=== PATIENT | female | born 1985 | race Caucasian/White ===

== ENCOUNTER 2021-02-13 20:53 | Observation (INO) ==
[2021-02-14] MEDS ORDERED: Melatonin 3 MG TABLET PO PRN (01:36)
[2021-02-14] MEDS ORDERED: Ondansetron 4 MG/2 ML VIAL IVP PRN (01:36)
[2021-02-14] MEDS ORDERED: Naloxone 0.4 MG/ML INJ IVP PRN (01:36)
[2021-02-14] MEDS ORDERED: Ketorolac 15 MG/ML VIAL IVP ONE (02:06)
[2021-02-14] MEDS ORDERED: 0.9 % Sodium Chloride 1,000 ML IVC ONE (02:10)
[2021-02-14 06:54] LABS: Hematocrit 38.5 % (35.3-44.9); Hemoglobin 12.4 g/dL (11.5-15.4); Mean Corpuscular HGB Conc 32.2 g/dL (31.6-35.5); Mean Corpuscular Hemoglobin 26.6 pg (28.0-33.3); Mean Corpuscular Volume 82.6 fL (83.0-100.0); Mean Platelet Volume 9.3 fL (9.4-12.4); Platelet Count 187 K/mcL (140-400); Red Blood Count 4.66 M/mcL (3.82-4.97); Red Cell Distribution Width 13.7 % (11.5-14.5); White Blood Count 28.7 K/mcL (4.3-11.1)
[2021-02-14 07:01] LABS: Estimated Average Glucose 126 mg/dl
[2021-02-14 07:13] LABS: Alanine Aminotransferase 459 Units/L (7-52); Albumin 3.6 g/dL (3.5-5.7); Albumin/Globulin Ratio 1.2 (1.1-2.2); Alkaline Phosphatase 350 Units/L (34-104); Aspartate Amino Transferase 351 Units/L (13-39); BUN/Creatinine Ratio 18 (6-26); Bilirubin,Total 3.6 mg/dL (0.3-1.0); Blood Urea Nitrogen 14 mg/dL (6-20); Calcium 8.8 mg/dL (8.6-10.3); Carbon Dioxide 23 mEq/L (23-29); Chloride 106 mEq/L (98-107); Glucose 82 mg/dL (70-105); Magnesium 2.1 mg/dL (1.6-2.6); Osmolality,Calculated 288 (280-300); Phosphorous 3.6 mg/dL (2.7-4.5); Sodium 139 mEq/L (136-145); Total Protein 6.6 g/dL (6.4-8.9); eGFR For African Americans > 60 (> 60); eGFR For Non-African Americans > 60 (> 60)
[2021-02-14 07:46] LABS: Lymphocytes # 24.1 K/mcL (0.6-4.6); Neutrophils # 4.6 K/mcL (1.6-8.9); Reactive Lymphocytes Present (Not Present); Smudge Cells Present (Not Present)
[2021-02-14 07:47] LABS: Platelet Estimate Normal (Normal)
[2021-02-14 08:12] LABS: Hepatitis B Surface Antigen Nonreactive (Nonreactive)
[2021-02-14 08:41] LABS: Hepatitis C Virus Antibody Nonreactive (Nonreactive)
[2021-02-14 08:42] LABS: Hepatitis B Core IgM Nonreactive (Nonreactive)
[2021-02-14 08:43] LABS: Hepatitis A Antibody IgM Nonreactive (Nonreactive)
[2021-02-14] MEDS: levoFLOXacin 750 MG/150 ML 750 MG/150 ML BAG IVPB SCH (09:18)
[2021-02-14 10:12] LABS: Amylase 30 Units/L (29-103); Lipase 23 Units/L (11-82)
[2021-02-14] MEDS: MetroNIDAZOLE 500 MG/100 ML 500 MG/100 ML BAG IVPB SCH ×2 (15:03→23:43)
[2021-02-14] MEDS: *HR* Heparin 5,000 UNIT/ML VIAL SQ SCH (16:32)
[2021-02-15 02:01] LABS: Basophils # 0.1 K/mcL (0.0-0.2); Basophils % 0.3 %; Hematocrit 38.3 % (35.3-44.9); Hemoglobin 12.4 g/dL (11.5-15.4); Immature Granulocytes % 1.3 % (0-4); Lymphocytes % 75.3 %; Mean Corpuscular HGB Conc 32.4 g/dL (31.6-35.5); Mean Corpuscular Hemoglobin 26.4 pg (28.0-33.3); Mean Corpuscular Volume 81.7 fL (83.0-100.0); Mean Platelet Volume 9.2 fL (9.4-12.4); Monocytes # 2.2 K/mcL (0.0-1.3); Monocytes % 8.8 %; Neutrophils # 3.5 K/mcL (1.6-8.9); Platelet Count 198 K/mcL (140-400); Red Blood Count 4.69 M/mcL (3.82-4.97); Red Cell Distribution Width 13.7 % (11.5-14.5); Segmented Neutrophils % 14.3 %; White Blood Count 24.5 K/mcL (4.3-11.1)
[2021-02-15 02:08] LABS: Lymphocytes # 18.5 K/mcL (0.6-4.6)
[2021-02-15 02:21] LABS: Alanine Aminotransferase 483 Units/L (7-52); Albumin 3.4 g/dL (3.5-5.7); Albumin/Globulin Ratio 1.2 (1.1-2.2); Alkaline Phosphatase 324 Units/L (34-104); Aspartate Amino Transferase 340 Units/L (13-39); BUN/Creatinine Ratio 18 (6-26); Bilirubin,Total 3.6 mg/dL (0.3-1.0); Blood Urea Nitrogen 12 mg/dL (6-20); Calcium 8.2 mg/dL (8.6-10.3); Carbon Dioxide 23 mEq/L (23-29); Chloride 104 mEq/L (98-107); Globulin 2.8 g/dL (2.4-3.5); Glucose 103 mg/dL (70-105); Osmolality,Calculated 280 (280-300); Potassium 4.2 mEq/L (3.5-5.1); Sodium 135 mEq/L (136-145); Total Protein 6.2 g/dL (6.4-8.9); eGFR For African Americans > 60 (> 60); eGFR For Non-African Americans > 60 (> 60)
[2021-02-15 02:36] LABS: Platelet Estimate Normal (Normal)
[2021-02-15] MEDS: *HR* Heparin 5,000 UNIT/ML VIAL SQ SCH (05:30)
[2021-02-15] MEDS: MetroNIDAZOLE 500 MG/100 ML 500 MG/100 ML BAG IVPB SCH (08:15)
[2021-02-15] MEDS: levoFLOXacin 750 MG/150 ML 750 MG/150 ML BAG IVPB SCH (09:44)
[2021-02-15 11:45] VITALS: BP 130/87
== END 2021-02-15 13:50 | disposition home or self-care (01) ==
LOC: 2ANU → SUATTDRO 23:59 → 2ANU 02-14 00:21
PROVIDERS: ADMIT Internal Medicine; ATTEND Internal Medicine